=== PATIENT | male | born 1970 | race Caucasian/White ===

== ENCOUNTER 2021-02-20 08:12 | Day surgery (SDC) | payer OTHER ==
[2021-02-18 13:07] LABS: CORONAVIRUS COVID-19 NAA NEGATIVE (NEGATIVE)
[2021-02-20] MEDS: Lactated Ringers 1,000 ML IV SCH (08:35)
[2021-02-20] MEDS ORDERED: fentaNYL 100 MCG/2 ML SDV ONE (09:22)
[2021-02-20] MEDS ORDERED: Propofol 200 MG/20 ML SDV ONE ×2 (09:22→10:46)
[2021-02-20] MEDS ORDERED: Midazolam 1 MG/ML 2 ML SDV ONE (09:23)
--- NOTE | 2021-02-20 14:31 | OR ---
DATE OF SURGERY: 02/20/2021. REFERRING PROVIDER: BILL Siu PRE-OPERATIVE DIAGNOSES: Positive Cologuard. This is the patient's first colonoscopy. He does have history of some constipation. There is a family history of polyps in father, although it does not sound like any advanced type polyps. POST-OPERATIVE DIAGNOSES: 1. 3 mm rectal polyp removed using cold forceps. 2. Moderately tortuous, redundant colon. 3. Normal-appearing distal ileum. PROCEDURE: Colonoscopy with polypectomy x1 using cold forceps. SURGEON: Renny Begum M.D. ANESTHESIA: Monitored anesthesia care. BOWEL PREP: Fair to good for the most part, but poor within the rectal vault. The patient also had a somewhat hyperactive colon which resulted in longer procedure time to obtain adequate viewing. Emanuel is a 50-year-old male who was brought to the endoscopy suite after discussing risks and benefits of the procedure. Informed consent was obtained for conscious sedation and colonoscopy with or without biopsy and/or polypectomy. We also discussed possibility of missed lesions. Pre-procedure exam was unremarkable. IV, oxygen, and monitors were placed. The patient was placed in the left lateral decubitus position. Sedation was administered and a digital rectal exam was performed and unremarkable. Colonoscope was passed into the rectum and slowly advanced all the way to the cecum. Cecum was viewed and photographed. The ileocecal valve was intubated and distal ileum was normal in appearance. The colonoscope was slowly withdrawn and the mucosa was closed observed in a direct circumferential manner. The ascending colon was unremarkable. The transverse colon was unremarkable. The descending colon was unremarkable. The sigmoid colon was unremarkable. Rectal mucosa revealed 3 mm polyp removed using cold forceps. Prep was somewhat poor within the rectal vault area and plugged the scope several times. Retroflexion was performed and rectal mucosa otherwise unremarkable. Scope was removed. The patient tolerated the procedure well. The patient was monitored until that baseline status. Discharge instructions were reviewed and the patient was discharged in good condition. COMPLICATIONS: None. TOTAL TIME: 49 minutes. ESTIMATED BLOOD LOSS: Less than 1 mL. RECOMMENDATIONS/FOLLOW-UP: We will await results of path report to determine ideal followup interval. I would like to kindly thank Dashawn Gonzalez for this referral. DMB: 02/20/2021 12:00:12 MODL: 02/20/2021 14:14:20 /[id number]
== END 2021-02-20 12:40 | disposition home or self-care (01) ==
LOC: VM.SDS 08:12
PROVIDERS: ATTEND Family Medicine
DX: K63.89 Other specified diseases of intestine (principal); K62.89 Other specified diseases of anus and rectum; M77.8 Other enthesopathies, not elsewhere classified; S90.212A Contusion of left great toe with damage to nail, initial encounter; Z01.812 Encounter for preprocedural laboratory examination; Z20.822 Contact with and (suspected) exposure to COVID-19; Z83.71 Family history of colonic polyps; X58.XXXA Exposure to other specified factors, initial encounter
CPT/HCPCS: 00811; J2250; J2704; J3010; J7120; U0002